=== PATIENT | male | born 1965 | race Caucasian/White ===

== ENCOUNTER 2017-08-30 10:03 | Emergency (ER) | payer OTHER ==
[~2017-08-30] VITALS: Ht 175.3 cm; Wt 68.0 kg
== END 2017-08-30 11:35 | disposition home or self-care (01) ==
LOC: ER 10:03
DX: Z02.83 Encounter for blood-alcohol and blood-drug test (principal); Z88.0 Allergy status to penicillin; Z87.891 Personal history of nicotine dependence; Y90.0 Blood alcohol level of less than 20 mg/100 ml
CPT/HCPCS: 36415; 99283; G0480

== ENCOUNTER 2021-05-22 09:31 | Day surgery (SDC) | payer OTHER ==
[~2021-05-22] VITALS: Ht 175.3 cm; Wt 90.3 kg
== END 2021-05-22 11:09 | disposition home or self-care (01) ==
LOC: ORSCSDS 09:31
PROVIDERS: Surgery
PROC: 0DBL8ZX Excision of Transverse Colon, Via Natural or Artificial Opening Endoscopic, Diagnostic (ICD-10-PCS; principal; 2021-05-22 10:30)
PROC: 0DBK8ZX Excision of Ascending Colon, Via Natural or Artificial Opening Endoscopic, Diagnostic (ICD-10-PCS; principal; 2021-05-22 10:30)
DX: K62.5 Hemorrhage of anus and rectum (principal); Z80.0 Family history of malignant neoplasm of digestive organs; R19.4 Change in bowel habit; D12.2 Benign neoplasm of ascending colon; D12.3 Benign neoplasm of transverse colon; Z87.891 Personal history of nicotine dependence
CPT/HCPCS: 88305; J2250; J2405; J2704